=== PATIENT | female | born 1950 | race Caucasian/White ===

== ENCOUNTER 2021-08-06 01:15 | Observation (INO) ==
[2021-08-06 03:05] LABS: ABS Basophils 0.1 10^3/ul (0-0.2); ABS Lymphocytes 1.3 10^3/ul (1.0-4.8); ABS Monocytes 0.5 10^3/ul (0-0.8); Eosinophil % 0.5 %; Hematocrit 42 % (35-47); Hemoglobin 14.5 g/dL (12.0-16.0); Lymphocyte % 27.3 %; Mean Corpuscular HGB Conc 35 g/dL (31-36); Mean Corpuscular Hemoglobin 35 pg (27-31); Mean Corpuscular Volume 101 fL (80-97); Mean Platelet Volume 8.8 fL (7.4-10.4); Platelet Count 240 10^3/uL (150-450); Red Blood Count 4.12 10^6 /uL (3.70-4.87); Red Cell Distribution Width 15 % (10-15); White Blood Count 4.9 10^3/uL (3.5-10.8)
[2021-08-06 03:30] LABS: Albumin 4.7 g/dL (3.2-5.2); Albumin/Globulin Ratio 2.1 (1-3); Calcium 9.8 mg/dL (8.6-10.3); Globulin 2.2 g/dL (2-4); Total Bilirubin 0.5 mg/dL (0.2-1.0); Total Protein 6.9 g/dL (6.4-8.9); eGFR CKD-EPI 77.4 (>60)
[2021-08-06 04:32] LABS: High Sensitivity Troponin 1 Hr 30 pg/mL (<15)
[2021-08-06] MEDS ORDERED: Heparin DRIP 25,000 UNITS BAG 25,000 UNITS/500 ML BAG IV SCH (06:45)
[2021-08-06] MEDS ORDERED: Heparin 5000 UNITS/ML 1 mL VIAL IV SCH (07:00)
[2021-08-06 07:01] LABS: ABS Basophils 0.1 10^3/ul (0-0.2); ABS Lymphocytes 1.4 10^3/ul (1.0-4.8); ABS Monocytes 0.4 10^3/ul (0-0.8); ABS Neutrophils 3.5 10^3/ul (1.5-7.7); Eosinophil % 0.1 %; Hematocrit 40 % (35-47); Lymphocyte % 25.8 %; Mean Corpuscular HGB Conc 35 g/dL (31-36); Mean Corpuscular Hemoglobin 35 pg (27-31); Mean Corpuscular Volume 101 fL (80-97); Mean Platelet Volume 8.5 fL (7.4-10.4); Platelet Count 222 10^3/uL (150-450); Red Blood Count 3.97 10^6 /uL (3.70-4.87); Red Cell Distribution Width 15 % (10-15); White Blood Count 5.4 10^3/uL (3.5-10.8)
[2021-08-06 07:51] LABS: eGFR CKD-EPI 86.1 (>60)
[2021-08-06 10:48] LABS: HDL Cholesterol 62.4 mg/dL
[2021-08-06] MEDS ORDERED: Perflutren Lipid Microsphere 3 ML VIAL ONE (15:19)
[2021-08-06 15:45] VITALS: BP 138/74
== END 2021-08-06 18:35 | disposition home or self-care (01) ==
LOC: EDHOLD 01:15 → ED 01:15 → MEDTELE 11:28
PROVIDERS: ADMIT Internal Medicine; ATTEND Internal Medicine